=== PATIENT | male | born 1995 | race Caucasian/White ===

== ENCOUNTER 2017-12-27 05:38 | Emergency (ER) | payer OTHER ==
[2017-12-27 05:45] VITALS: O2SAT 95
--- NOTE | 2017-12-27 06:28 | EDPHY ---
H & P Stated Complaint: ETOH, Detox Time Seen by Provider: 12/27/17 06:00 HPI/ROS: Chief Complaint: Alcohol intoxication, vomiting HPI: 22-year-old male who was found in public intoxicated. Please were going to take [facility] but they do not have any beds available. Is unable to ambulate on their own. Patient brought in by PD for further evaluation. No obvious signs of trauma per EMS. Patient denies any falls or any injuries. He has been ambulating unassisted. He is currently without complaint ROS: 10 point Review of Systems is negative except as noted in the HPI. PMH: Denies Medications: Denies Allergies: Denies Social History: Positive for alcohol Family History: non-contributory Physical Exam: Gen: Awake alert, slurred speech, smells of alcohol HEENT: Atraumatic Nose: no epistaxis or deformity Eyes: PERRLA, EOMI Mouth: Moist mucosa Neck: Supple, no step-offs or deformity Chest: Atraumatic, lungs clear to auscultation Heart: S1, S2 normal, no murmur Abd: Soft, non-tender, no guarding Back: Atraumatic Ext: no edema, atraumatic Skin: no rash Neuro: Sensation grossly intact, Strength 5/5 in bilateral upper and lower extremities - Personal History Current Tetanus Diphtheria and Acellular Pertussis (TDAP): Yes - Medical/Surgical History Hx Asthma: No Hx Chronic Respiratory Disease: No Hx Diabetes: No Hx Cardiac Disease: No Hx Renal Disease: No Hx Cirrhosis: No Hx Alcoholism: No Hx HIV/AIDS: No Hx Splenectomy or Spleen Trauma: No Other PMH: denies - Social History Smoking Status: Never smoked Constitutional: Initial Vital Signs Temperature (C) 36.2 C 12/27/17 05:40 Heart Rate 89 12/27/17 05:40 Respiratory Rate 20 12/27/17 05:40 Blood Pressure 138/85 H 12/27/17 05:40 O2 Sat (%) 95 12/27/17 05:40 O2 Delivery Mode Room Air Allergies/Adverse Reactions: No Known Allergies Allergy (Unverified 12/27/17 05:40) Medical Decision Making ED Course/Re-evaluation: Patient is now awake and appropriate. Ambulating unassisted to the bathroom. No current complaints. Patient is tolerating oral fluids. Patient is ready for discharge with sober ride. Departure - Departure Disposition: Home, Routine, Self-Care Clinical Impression: Alcoholic intoxication Condition: Good Instructions: Alcohol Intoxication (ED) Referrals: NONE *PRIMARY CARE P,. [Primary Care Provider] - As per Instructions
[2017-12-27 06:47] VITALS: BP 136/82; PULSE 87; RESP 18; TEMP 97.5
== END 2017-12-27 06:44 | disposition home or self-care (01) ==
DX: F10.129 Alcohol abuse with intoxication, unspecified (principal)

== ENCOUNTER → 2018-04-07 | Outpatient (CLI) | payer OTHER | LOC: FIMAGING 16:13 | PROVIDERS: ATTEND Registered Nurse | DX: S49.91XA Unspecified injury of right shoulder and upper arm, initial encounter (principal) ==